=== PATIENT | female | born 1995 | race Caucasian/White ===

== ENCOUNTER 2019-08-02 13:10 | Emergency (ER) | payer OTHER ==
[~2019-08-02] VITALS: Ht 170.2 cm; Wt 98.0 kg
[2019-08-02] MEDS: IPRATROPIUM BROMIDE 0.5 MG/2.5 ML NEBU NEB ONE (13:22)
[2019-08-02] MEDS: ALBUTEROL SULFATE 2.5 MG/3 ML NEBU NEB ONE (13:22)
[2019-08-02] MEDS ORDERED: ALBUTEROL SULFATE 2.5 MG/3 ML NEBU ONE (13:26)
[2019-08-02] MEDS ORDERED: IPRATROPIUM BROMIDE 0.5 MG/2.5 ML NEBU ONE (13:26)
--- NOTE | 2019-08-02 13:30 | NUR ---
Patient discharged to home in stable conditon. Written and verbal after care instructions given. Patient verbalizes understanding of instructions. Patient d/c back to facility. Manager [employer] from facility here to take patient back. Patient ambulated with stable gait.
[2019-08-02 14:16] VITALS: BP 133/91
== END 2019-08-02 14:17 | disposition home or self-care (01) ==
LOC: ER 13:10
DX: J45.909 Unspecified asthma, uncomplicated (principal); R55 Syncope and collapse; Z88.8 Allergy status to other drugs, medicaments and biological substances
CPT/HCPCS: A4663; J3590